=== PATIENT | female | born 1980 | race Caucasian/White ===

== ENCOUNTER → 2024-07-04 14:30 | Outpatient (BNVA) | payer MEDICARE, MEDICAID, SELFPAY | PROVIDERS: Family Provider Nurse Practitioner; PCP Nurse Practitioner; Visit Provider Family Medicine | DX: Z13.6 Encounter for screening for cardiovascular disorders (principal); E55.9 Vitamin D deficiency, unspecified; G62.9 Polyneuropathy, unspecified; F41.1 Generalized anxiety disorder; F33.1 Major depressive disorder, recurrent, moderate | CPT/HCPCS: 80053; 80061; 82306; 84443; 85025 ==

== ENCOUNTER 2024-07-27 15:59 | Outpatient (CLI) | payer MEDICARE, MEDICAID, SELFPAY ==
--- NOTE | 2024-07-27 16:00 | MM_ITS ---
WS: [id number] BILATERAL 3D TOMOSYNTHESIS DIGITAL SCREENING MAMMOGRAPHY WITH CAD CLINICAL INFORMATION: Z12.31 - Encounter for screening mammogram for malignant ... HISTORY: Screening mammogram. No current complaints. COMPARISON: Baseline TECHNIQUE: Bilateral CC and MLO views. FINDINGS: Scattered fibroglandular densities bilaterally. No suspicious focal mass, asymmetry, calcifications, or architectural distortion. No evidence of malignancy. MM/MM scr tomosynthesis [id number] IMPRESSION: DENSITY: There are scattered areas of fibroglandular density. BI-RADS: 1 - Negative. FOLLOW UP: 1 Year Follow-up Recommend return to annual screening mammography.
== END 2024-07-27 16:00 | disposition home or self-care (01) ==
LOC: MOBLMAM 16:28
PROVIDERS: PCP Family Medicine; Visit Provider Family Medicine
DX: Z12.31 Encounter for screening mammogram for malignant neoplasm of breast (principal); R92.323 Mammographic fibroglandular density, bilateral breasts
CPT/HCPCS: 77063; 77067

== ENCOUNTER → 2024-08-10 11:00 | Outpatient (BNVA) | payer MEDICARE, MEDICAID, SELFPAY | PROVIDERS: PCP Family Medicine; Referring Provider Family Medicine; Visit Provider Specialist | DX: G89.29 Other chronic pain; G56.03 Carpal tunnel syndrome, bilateral upper limbs; G43.711 Chronic migraine without aura, intractable, with status migrainosus; M54.50 Low back pain, unspecified; M41.9 Scoliosis, unspecified | CPT/HCPCS: 99204 ==

== ENCOUNTER 2024-09-19 11:00 | Outpatient (CLI) | payer MEDICARE, MEDICAID, SELFPAY ==
--- NOTE | 2024-09-19 11:00 | MR_ITS ---
WS: [id number] MRI LUMBAR SPINE NONCONTRAST TECHNIQUE: Sagittal T1, T2 and STIR imaging. Axial T1 and T2 imaging. CLINICAL INFORMATION: M54.9 - Dorsalgia, unspecified COMPARISON: MRI 2016 FINDINGS: Mild lumbar curve. No acute compression. Slight anterolisthesis L3 on L4. Disc bulging worse at L1-2 L2-3 and L3-4 progressed since 2016. Central disc protrusions in the cervical spine at C5-C6 and C6-C7. Mild central canal stenosis. L1-L2: Central and RIGHT paracentral disc extrusion with caudal migration of disc material in the RIG HT subarticular recess. Moderate central canal stenosis with impingement subarticular recess bilatera lly. Mild bilateral foraminal narrowing. Disc herniation is new compared to previous. Moderate facet arthropathy. L2-L3: Mild disc bulge with mild central canal stenosis. Impingement RIGHT subarticular recess. Moder ate facet arthropathy. Foramen are patent. L3-L4: RIGHT subarticular disc protrusion. Impingement RIGHT subarticular recess. Mild RIGHT foramina l narrowing. Moderate facet arthropathy. Mild central canal stenosis. L4-L5: Mild annular bulging. Mild facet arthropathy. Mild RIGHT greater than LEFT foraminal narrowing . L5-S1: Mild annular bulging. Moderate facet arthropathy. Spinal canal and foramen are patent. Visualized pelvic bony structures: Normal. Paravertebral soft tissues: Normal. MR/MR lumbar spine wo con* [id number] IMPRESSION: 1. Lumbar scoliosis. No acute compression. 2. New RIGHT central and RIGHT paracentral disc extrusion L1-2 with slight inf erior migration of disc material. Moderate central canal stenosis with impingem ent on the RIGHT greater than LEFT subarticular recess. This is new from previo us. 3. Mild central canal stenosis L2-3 and L3-4 with narrowing of the RIGHT subar ticular recess at these levels also appears progressed. 4. Otherwise mild foraminal narrowing described above.
== END 2024-09-19 11:17 | disposition home or self-care (01) ==
PROVIDERS: PCP Family Medicine; Visit Provider Specialist
DX: M51.26 Other intervertebral disc displacement, lumbar region (principal); M48.061 Spinal stenosis, lumbar region without neurogenic claudication; M47.896 Other spondylosis, lumbar region; M54.16 Radiculopathy, lumbar region; M47.898 Other spondylosis, sacral and sacrococcygeal region
CPT/HCPCS: 72148

== ENCOUNTER 2024-09-28 06:00 | Outpatient (RCR) | payer MEDICARE, MEDICAID, SELFPAY | END 2024-10-08 23:59 | disposition home or self-care (01) | LOC: GPT 06:00 | PROVIDERS: PCP Family Medicine; Visit Provider Specialist | DX: M41.25 Other idiopathic scoliosis, thoracolumbar region (principal) | CPT/HCPCS: 97110; 97112; 97162 ==

== ENCOUNTER → 2024-10-04 13:47 | Outpatient (BNVA) | payer MEDICARE, MEDICAID, SELFPAY | PROVIDERS: PCP Family Medicine; Referring Provider Specialist; Visit Provider Specialist | DX: G62.9 Polyneuropathy, unspecified (principal); G56.03 Carpal tunnel syndrome, bilateral upper limbs | CPT/HCPCS: 95910; 99214 ==

== ENCOUNTER 2024-10-09 06:00 | Outpatient (RCR) | payer MEDICARE, MEDICAID, SELFPAY | END 2024-11-08 23:59 | disposition home or self-care (01) | LOC: GPT 06:00 | PROVIDERS: PCP Family Medicine; Visit Provider Specialist | DX: M41.25 Other idiopathic scoliosis, thoracolumbar region (principal) | CPT/HCPCS: 97110; 97112; 97140; 97530 ==

== ENCOUNTER → 2024-11-16 10:30 | Outpatient (BNVA) | payer MEDICARE, MEDICAID, SELFPAY | PROVIDERS: PCP Family Medicine; Visit Provider Family Medicine | DX: E87.6 Hypokalemia (principal) | CPT/HCPCS: 80048 ==

== ENCOUNTER → 2024-11-24 11:15 | Outpatient (BNVA) | payer MEDICARE, MEDICAID, SELFPAY | PROVIDERS: PCP Family Medicine; Visit Provider Student in an Organized Health Care Education/Training Program | DX: G56.03 Carpal tunnel syndrome, bilateral upper limbs (principal) | CPT/HCPCS: 73110; 99204 ==

== ENCOUNTER → 2024-12-08 15:26 | Outpatient (BNVA) | payer MEDICARE, MEDICAID, SELFPAY | PROVIDERS: PCP Family Medicine; Visit Provider Orthopaedic Surgery | DX: M54.42 Lumbago with sciatica, left side (principal); M54.41 Lumbago with sciatica, right side; G89.29 Other chronic pain | CPT/HCPCS: 72110; 80053; 81001; 85025; 99204 ==

== ENCOUNTER 2024-12-16 06:41 | Day surgery (SDC) | payer MEDICARE, MEDICAID, SELFPAY ==
[2024-12-16] VITALS (9 sets, daily range): BP systolic 92–133; BP diastolic 56–80; PULSE 79–87; RESP 14–18; TEMP 36.1–36.6; O2SAT 92–98; BMI 51.9
[2024-12-16] MEDS: acetaminophen 1,000 MG/100 ML PIGGYBACK 400 MG IV (07:24)
[2024-12-16] MEDS: sodium chloride 0.9% 1,000 ML 30 ML IV (07:24)
[2024-12-16] MEDS: ketorolac 30 mg/mL INJ IVP (07:27)
[2024-12-16 07:39] LABS: OR HCG Qualitative Urine Negative (Negative)
--- NOTE | 2024-12-16 07:40 | ANES.PREANE2 ---
Pre-Anesthetic Assessment Height/Weight: Height 4 ft 11 in Weight 257 lb Temp Pulse Resp BP Pulse Ox O2 Del Method 97.2 F L 84 18 133/80 98 Room Air 12/16/24 07:09 12/16/24 07:09 12/16/24 07:09 12/16/24 07:09 12/16/24 07:09 12/16/24 07:09 Preop Diagnosis: Carpal tunnel syndrome Operation Date: 12/16/24 08:10 Proposed Procedures p Carpal Tunnel Release(Right) - Kenan Shearer, DO Was Beta Shiv taken within 24 hours: Yes Was Clonidine taken within 24 hours: N/A Last intake: Intake Last Liquid Date 12/15/24 Last Liquid Time 23:45 Last Solid Date 12/15/24 Last Solid Time 23:45 Social Tobacco and No alcohol Exam alert, oriented x 3, clear to auscultation bilaterally and regular rate & rhythm Airway Submandibular: within normal limits Cervical ROM: within normal limits Mallampati: Class II Comments: Comments: Edentulous Anesthetic Plan ASA status: 3 Anesthesia: Choice Other: Patient reports waking up during endoscopy as well as being awake too early from surgery last time States that local anesthetics do not work on her NPO since yesterday Patient on propranolol for anxiety History of PTSD BMI 51 Labs 12/08/2024 reviewed acceptable for procedure We will still have surgery to localize Medications/Allergies Home Medications ?Medication ?Instructions ?Recorded ?Confirmed ?Last Taken ?Type duloxetine 60 mg capsule,delayed 60 mg PO DAILY #30 caps 07/25/24 12/15/24 12/15/24 Rx release propranolol 20 mg tablet 20 mg PO BID PRN anxiety #60 tabs 07/25/24 12/16/24 2 Months Ago Rx ~10/15/24 gabapentin 600 mg tablet 900 mg (1.5 x 600 mg) PO TID #135 07/27/24 12/15/24 12/16/24 06:00 Rx tabs meloxicam 15 mg tablet 15 mg PO DAILY #30 tabs 07/27/24 12/16/24 1 Week Ago Rx ~12/09/24 buspirone 10 mg tablet 10 mg PO TID #90 tabs 10/03/24 12/15/24 12/15/24 Rx albuterol sulfate 90 mcg/actuation 1 inh inhalation QID PRN shortness 11/11/24 12/16/24 2 Months Ago Rx aerosol inhaler of breath or wheezing #8.5 grams ~10/15/24 tramadol 50 mg tablet 100 mg (2 x 50 mg) PO TID PRN pain 11/11/24 12/15/24 12/16/24 06:00 Rx #180 tabs cyclobenzaprine 10 mg tablet 10 mg PO TID muscle spasm 12/15/24 12/15/24 12/16/24 06:00 History Allergies Allergy/AdvReac Type Severity Reaction Status Date / Time amoxicillin Allergy Mild ALGY-Difficulty Verified 12/15/24 13:12 Breathing Bleach (Sodium Hypochlorite) AdvReac Mild ADR-Blurry Verified 12/15/24 13:12 Vision coconut AdvReac Mild ADR-Nausea Verified 12/15/24 13:12 erythromycin base AdvReac Mild ADR-Cramping Verified 12/15/24 13:12 of the Muscles Current Medications Generic Name Dose Route Start Last Admin Trade Name Freq PRN Reason Stop Dose Admin Sodium Chloride 1,000 mls @ 30 mls/hr 12/16/24 07:00 12/16/24 07:24 Sodium Chloride 0.9% IV 12/17/24 06:59 30 mls/hr .Q24H LES Administration PFSH Anesthesia Medical History Psychiatric care Family History Mother Ovarian cancer Social History Smoking and tobacco/nicotine status: current every day tobacco/nicotine user cigarettes Packs smoked per day: 1.5 Second hand smoke exposure: No Alcohol intake: current Alcohol intake frequency: holidays/special occasions only Substance/Drug Use: former Adopted: No Caregiver/support person: No Lives independently: Yes Current occupational status: disabled Current occupational exposures/hazards: No Female Reproductive History Spontaneous abortions: No Data Anesthesia Cardiac Studies: No Data to Display
--- NOTE | 2024-12-16 07:54 | W.PM.OPSUD ---
Surgery/Procedure H&P Update DATE OF PROCEDURE: December 16, 2024 DATE H&P PERFORMED: 12/16/24 H&P UPDATE INFORMATION: I have reviewed H&P completed within last 30 days, I have examined patient prior to procedure and No changes to prior documentation PREOP DIAGNOSIS: Right carpal tunnel syndrome PRIMARY INDICATION FOR PROCEDURE: Right carpal tunnel syndrome PLANNED PROCEDURE: Operation Date: 12/16/24 08:10 Proposed Procedures p Carpal Tunnel Release(Right) - Kenan Shearer DO
[2024-12-16] MEDS: clindamycin 900 MG/50 ML PREMIX 100 MG IV (08:10)
[2024-12-16] MEDS: lidocaine-epi 1% PF 1:200,000 30 mL SDV 5 ML INJECTION (08:15)
[2024-12-16] MEDS: ROPivacaine 0.5% SDV 30 mL 25 MG INJECTION (08:15)
--- NOTE | 2024-12-16 08:52 | SUR.PHASEI ---
09:45 RECEIVED PT FROM OR STAFF. ALERT AND RESPONSIVE. AIRWAY PATENT, WITH GOOD VENTILATION. ROM AND CAP REFILL RIGHT HAND.
--- NOTE | 2024-12-16 08:53 | P.BOP_ITS ---
Date of Procedure: 12/16/2024 Surgeon: Kenan Shearer DO Gas Plant Operator(s): None Procedure(s) performed: Right carpal tunnel release Findings of the procedure(s): Patient found to have right carpal tunnel syndrome underwent procedure as planned without issues or complications Estimated blood loss: 5 mL Specimen(s) removed: None Post-operative diagnosis: Right carpal tunnel syndrome
--- NOTE | 2024-12-16 08:53 | PM.OP ---
Operative Report Date of procedure: December 16, 2024 Surgeon: Kenan Shearer DO Procedure: Preop Diagnosis: Right Carpal Tunnel Syndrome Post-op diagnosis: Same Procedure done: 1. Right carpal tunnel release Surgeon: Kenan Shearer DO Anesthesia: MAC (Local) Estimated blood loss: [ 5]mL Tourniquet time [ 6]minutes IV fluids: See anesthesia record Complications: None Findings: See operative report narrative Condition: stable Disposition: same day Brief History: Patient is a pleasant [ 44 ]year-old [ F] with right carpal tunnel syndrome. Patient has been worked up in the outpatient setting findings and physical examination consistent with this. Patient nerve conduction studies consistent with carpal tunnel syndrome. We detailed out patient's risk benefits complication alternatives with surgical and nonsurgical treatment options. Through shared decision making, patient agrees to proceed with surgical intervention of the right carpal tunnel release . Patient understands and agrees with current plan. All questions answered. Patient elects to proceed with surgical intervention with carpal tunnel release. Procedure: Patient seen and evaluated in the preoperative holding area. Consent was reviewed and signed with patient. Correct extremity was marked. Patient was seen evaluated by the anesthesia department once cleared for surgery was brought back to the operative suite. Patient was kept on [facility] in supine position all bony prominences were well-padded patient properly secured to the bed. Right upper extremity was then placed onto an armboard. A nonsterile tourniquet was applied to the Right upper arm. Patient underwent anesthesia per the anesthesia department. Patient's Right upper extremity was then prepped and draped in standard orthopedic fashion. Final timeout performed. Patient received appropriate preoperative antibiotics. Under sterile aseptic technique patient received local anesthesia over the preplanned carpal tunnel incision site. Esmarch was used to exsanguinate the Right upper extremity and tourniquet was insufflated to 250 mmHg. A standard mini open Right carpal tunnel incision was made. Starting distally at Aceves's cardinal line in line with the fourth ray extending proximally distal to the wrist crease centered over the carpal tunnel. Sharp scalpel incision was made through skin and subcutaneous tissue. Self-retaining retractor was placed and the palmar fascia was identified. This was then split longitudinally and direct visualization of the transverse carpal ligament was then made. I then utilizing scalpel feathered through the transverse carpal ligament until I entered the floor of the transverse carpal tunnel ligament into the carpal tunnel. Next I switched to dissection scissors and completed my release of the transverse carpal ligament distally with care to protect the recurrent motor branch. I completely released into the palmar fat and until no entrapment was noted distally. Care was made to protect the superficial palmar arch during my distal dissection. Next I utilized a nasal speculum placed on top of the transverse carpal ligament and utilize this to retract the subcutaneous fat and tissue and under direct loupe magnification was able to identify the transverse carpal ligament. Next I then protected the contents of the carpal tunnel and subsequently utilizing dissection scissors under loupe magnification completely released the transverse carpal ligament proximally into the antebrachial fascia. Care was made to protect the palmar cutaneous branch by keeping my scissors curved ulnarly. Once completely released, I then placed my [place] and had appropriate decompression of the carpal tunnel proximally as well as distally. I then inspected the contents of the carpal tunnel which showed an hourglass shape of the median nerve showing its compression. No masses were noted. Tendons appeared healthy. Wound was then thoroughly irrigated. Tourniquet deflated. Hemostasis satisfactory with bipolar electrocautery. I then closed the incision with interrupted nylon stitches. Xeroform 4 x 4's and a bulky soft dressing was applied. Patient was then awakened from anesthesia and taken to PACU in stable condition. Patient tolerated procedure without complications. Disposition: Patient taken to PACU in stable condition recovering well. Dressing clean dry and intact. Patient will receive appropriate discharge instructions as well as pain medication postoperatively. Patient to follow-up with me in the office in 2 weeks. They understand they may be weightbearing as tolerated to the right hand. Patient should keep incision clean dry and intact. Patient understands if any questions or concerns may contact the office.
[2024-12-16] MEDS: HYDROcodone-acetaminophen 5-325 mg Tablet 1 TAB PO (09:56)
--- NOTE | 2024-12-16 10:21 | ANE.PACU2 ---
Inpatient post-anesthesia follow up: Airway intact: Yes Vital signs: Temperature 98 F Pulse Rate 79 Respiratory Rate 16 Blood Pressure 112/74 Pulse Oximetry 96 Oxygen Delivery Me thod Room Air Oxygen Flow Rate Fraction of Inspir ed Oxygen Hydration adequate: Yes Nausea and vomiting: No Pain level: 1
== END 2024-12-16 10:22 | disposition home or self-care (01) ==
PROVIDERS: Student in an Organized Health Care Education/Training Program; PCP Family Medicine; Visit Provider Student in an Organized Health Care Education/Training Program
PROC: (CPT 64721; principal; 2024-12-16 08:00)
DX: G56.03 Carpal tunnel syndrome, bilateral upper limbs (principal); Z79.899 Other long term (current) drug therapy; Z88.0 Allergy status to penicillin; Z91.018 Allergy to other foods; Z91.048 Other nonmedicinal substance allergy status; F17.210 Nicotine dependence, cigarettes, uncomplicated
CPT/HCPCS: 64721; 81025; J0131; J1885; J2250; J2704; J2795; J3010; J3490; J7030

== ENCOUNTER → 2025-01-03 13:41 | Outpatient (BNVA) | payer MEDICARE, MEDICAID, SELFPAY | PROVIDERS: PCP Family Medicine; Visit Provider Physician Assistant | DX: Z98.890 Other specified postprocedural states (principal) | CPT/HCPCS: 99024 ==

== ENCOUNTER → 2025-03-07 14:46 | Outpatient (BNVA) | payer MEDICARE, MEDICAID, SELFPAY | PROVIDERS: PCP Family Medicine; Visit Provider Orthopaedic Surgery | DX: M51.362 Other intervertebral disc degeneration, lumbar region with discogenic back pain and lower extremity pain (principal); M54.50 Low back pain, unspecified; M54.9 Dorsalgia, unspecified | CPT/HCPCS: 99213 ==

== ENCOUNTER 2025-03-29 15:22 | Outpatient (CLI) | payer MEDICARE, MEDICAID, SELFPAY ==
--- NOTE | 2025-03-29 15:15 | MR_ITS ---
WS: [id number] MRI LUMBAR SPINE NONCONTRAST HISTORY: Back Pain COMPARISON: 09/19/2024 TECHNIQUE: Sagittal and axial multisequence imaging is submitted. Straightening of the cervical lordosis. Cervical disc protrusions at C5-6 and C6-7. Discs are encroaching upon the cervical cord. Similar to the prior study. Moderate rotary scoliosis to the LEFT. Scoliosis does appear to have slightly increased. The spaces are narrowed and desiccated. Vertebral body osteophytosis. Marrow edema in L1 and L2 is new. Chronic changes in L3 and L4 with no acute marrow edema. Conus terminates normally at L1-2 disc level. L1-L2: Moderate size central disc protrusion extends into the subarticular recesses and contacts the traversing L2 nerve roots. Mild to moderate bilateral foraminal stenosis. Disc and osteophyte material causing foraminal stenosis. Moderate central to stenosis as on the prior study. L2-L3: Moderate diffuse disc bulging with moderate to severe facet joint arthritis. RIGHT subarticular recess impingement. RIGHT foraminal disc protrusion. RIGHT foraminal disc protrusion with mild contact on the exiting nerve root. Mild central stenosis with moderate RIGHT subarticular recess and RIGHT foraminal stenosis. L3-L4: Diffuse annular disc bulging asymmetric to the LEFT. Small disc osteophyte complexes, marked ligamentum flavum and facet arthritis. Mild central, subarticular recess and foraminal stenosis. Slightly greater impingement upon the RIGHT traversing L4 nerve root. L4-L5: Diffuse annular disc bulging with fluid in the facet joints and marked ligamentum flavum hypertrophy. Bilateral foraminal small disc osteophyte complexes with mild stenosis. L5-S1: No stenosis. Mild disc bulging and facet arthritis. MR/MR lumbar spine wo con* [id number] IMPRESSION: 1. Mild progression of LEFT rotoscoliosis since the prior study. 2. New endplate marrow edema at L1 and L2. No fractures. Schmorl's nodes suspe cted at L1 and L2. 3. New fluid in the L4-5 facet joints with mild progression of facet arthritis . Mild bilateral foraminal stenosis due to disc osteophyte disease. 4. L1-2: Moderate central disc protrusion extending into the subarticular rece sses. Moderate central stenosis with mild to moderate bilateral foraminal steno sis. No progression since the prior study. 5. L2-3: Moderate to severe facet joint arthritis with RIGHT subarticular impi ngement and a RIGHT foraminal disc protrusion. Moderate RIGHT subarticular rece ss and RIGHT foraminal stenosis. No obvious change since the prior study. 6. L3-4: Mild central and subarticular recess stenosis, multifactorial as abov e.
== END 2025-03-29 15:23 | disposition home or self-care (01) ==
LOC: RAD 15:23
PROVIDERS: PCP Family Medicine; Visit Provider Orthopaedic Surgery
DX: M48.061 Spinal stenosis, lumbar region without neurogenic claudication (principal); M41.86 Other forms of scoliosis, lumbar region; M51.46 Schmorl's nodes, lumbar region; M47.896 Other spondylosis, lumbar region; M25.78 Osteophyte, vertebrae; M51.26 Other intervertebral disc displacement, lumbar region; M50.222 Other cervical disc displacement at C5-C6 level; M50.223 Other cervical disc displacement at C6-C7 level; M51.369 Other intervertebral disc degeneration, lumbar region without mention of lumbar back pain or lower extremity pain; M24.28 Disorder of ligament, vertebrae; M51.379 Other intervertebral disc degeneration, lumbosacral region without mention of lumbar back pain or lower extremity pain; M47.897 Other spondylosis, lumbosacral region
CPT/HCPCS: 72148

== ENCOUNTER → 2025-04-04 15:35 | Outpatient (BNVA) | payer MEDICARE, MEDICAID, SELFPAY | PROVIDERS: PCP Family Medicine; Visit Provider Orthopaedic Surgery | DX: M54.9 Dorsalgia, unspecified (principal); Z09 Encounter for follow-up examination after completed treatment for conditions other than malignant neoplasm | CPT/HCPCS: 36415; 80053; 81001; 85025; 99214 ==

== ENCOUNTER → 2025-05-02 16:02 | Outpatient (BNVA) | payer MEDICARE, MEDICAID, SELFPAY | PROVIDERS: PCP Family Medicine; Visit Provider Orthopaedic Surgery | DX: M54.42 Lumbago with sciatica, left side (principal); M54.41 Lumbago with sciatica, right side; G89.29 Other chronic pain | CPT/HCPCS: 99213 ==

== ENCOUNTER 2025-05-05 08:21 | Day surgery (SDC) | payer MEDICARE, MEDICAID, SELFPAY ==
[2025-05-05] VITALS (15 sets, daily range): BP systolic 110–144; BP diastolic 61–95; PULSE 72–92; RESP 15–23; TEMP 36.7–37.1; O2SAT 90–99; BMI 49.4
[2025-05-05 08:51] LABS: OR HCG Qualitative Urine Negative (Negative)
[2025-05-05] MEDS: sodium chloride 0.9% 1,000 ML 30 ML IV (09:06)
--- NOTE | 2025-05-05 09:13 | P.ANESASSM_ITS ---
Pre-Anesthetic Assessment Height/Weight: Height 4 ft 11 in Weight 245 lb Temp Pulse Resp BP Pulse Ox O2 Del Method 98.7 F 88 17 122/74 98 Room Air 05/05/25 08:40 05/05/25 08:40 05/05/25 08:40 05/05/25 08:40 05/05/25 08:40 05/05/25 08:40 Preop Diagnosis: Lumbar stenosis with neurogenic claudication Operation Date: 05/05/25 09:40 Proposed Procedures p Lumbar Spine Decompression(Not Applicable) - Zain Urrutia, DO Was Beta Shiv taken within 24 hours: N/A Was Clonidine taken within 24 hours: N/A Last intake: Intake Last Liquid Date 05/04/25 Last Liquid Time 23:00 Last Solid Date 05/04/25 Last Solid Time 23:00 Social Tobacco and No alcohol Exam alert, oriented x 3 and regular rate & rhythm Airway Submandibular: within normal limits Cervical ROM: within normal limits Mallampati: Class III Dentition: full Anesthetic Plan ASA status: 3 Anesthesia: General Other: No prior issues with anesthesia NPO since yesterday evening Denies any cardiac Current smoker, nicotine and marijuana History of PTSD and depression Labs from 04/04/2025 reviewed acceptable for procedure BMI 49 hCG negative today Plan for GETA Medications/Allergies Home Medications ?Medication ?Instructions ?Recorded ?Confirmed ?Last Taken ?Type albuterol sulfate 90 mcg/actuation 1 inh inhalation QI D PRN shortness 11/11/24 05/05/25 2 Months Ago Rx aerosol inhaler of breath or wheezing #8.5 g alison ~10/15/24 duloxetine 60 mg capsule,delayed 60 mg PO DAILY #90 ca ps 05/04/25 05/05/25 05/04/25 Rx release gabapentin 600 mg tablet See Rx Instructions .Route 0 05/04/25 05/05/25 05/05/25 Rx .COMPLEX #135 tabs tramadol 50 mg tablet 100 mg (2 x 50 mg) PO TID MI N pain 05/04/25 05/05/25 05/05/25 Rx #180 tabs buspirone 10 mg tablet 10 mg PO DAILY 05/05/25 06/2 06/0205/04/25 History cyclobenzaprine 10 mg tablet 10 mg PO TID PRN Muscle S pasm 05/05/25 05/05/25 05/05/25 History meloxicam 15 mg tablet 15 mg PO DAILY 05/05/25 06/06/0204/27/25 History Allergies Allergy/AdvReac Type Severity Reaction Status Date / Time amoxicillin Allergy Mild ALGY-Difficulty Verified 05/05/25 08:36 Breathing Bleach (Sodium Hypochlorite) AdvReac Mild ADR-Blurry Verified 05/05/25 08:36 Vision coconut AdvReac Mild ADR-Nausea Verified 05/05/25 08:36 erythromycin base AdvReac Mild ADR-Cramping Verified 05/05/25 08:36 of the Muscles Current Medications Generic Name Dose Route Start Last Admin Trade Name Freq PRN Reason Stop Dose Admin Sodium Chloride 1,000 mls @ 30 mls/hr 05/05/25 08:30 05/05/25 09:06 Sodium Chloride 0.9% IV 05/06/25 08:29 30 mls/hr .Q24H LES Administration PFSH Anesthesia Medical History Psychiatric care Family History Mother Ovarian cancer Social History Smoking and tobacco/nicotine status: current every day tobacco/nicotine user cigarettes Packs smoked per day: 1.5 Second hand smoke exposure: No Alcohol intake: current Alcohol intake frequency: holidays/special occasions only Substance/Drug Use: former Adopted: No Caregiver/support person: No Lives independently: Yes Current occupational status: disabled Current occupational exposures/hazards: No Female Reproductive History Spontaneous abortions: No
--- NOTE | 2025-05-05 09:48 | W.PM.OPSUD ---
Surgery/Procedure H&P Update DATE OF PROCEDURE: May 05, 2025 DATE H&P PERFORMED: 05/02/25 H&P UPDATE INFORMATION: I have reviewed H&P completed within last 30 days, I have examined patient prior to procedure and No changes to prior documentation PREOP DIAGNOSIS: Lumbar stenosis with neurogenic claudication PLANNED PROCEDURE: Operation Date: 05/05/25 09:40 Proposed Procedures p Lumbar Spine Decompression(Not Applicable) - Zain Urrutia DO
[2025-05-05] MEDS: clindamycin 600 MG/50 ML PREMIX 100 MG IV (10:02)
[2025-05-05] MEDS: lidocaine-epi 1% 20 mL INJ INJECTION (10:59)
--- NOTE | 2025-05-05 11:27 | XR_ITS ---
WS: [id number] Exam: XR lumbar spine 2-3V* [id number] Date/Time of Exam: 05/05/2025 11:27 AM Reason For Exam: OR PICS Single limited AP image of the lumbar spine is submitted for evaluation. The image was obtained for preoperative localization purposes.
[2025-05-05] MEDS: ipratropium-albuterol 3 mL Neb INHALATION (14:11)
--- NOTE | 2025-05-05 14:38 | PC.NURSE ---
Pt was able to stay alert and sit up on side of bed and talk with RN. Oxygen saturation maintained above 94% on room air. Cleared for discharge per anesthesiologist.
--- NOTE | 2025-05-05 17:30 | PM.OP ---
Operative Report Date of procedure: May 05, 2025 Pre-op diagnosis: Lumbar stenosis with neurogenic claudication Post-op diagnosis: same Procedure done: 1. L3-4 laminectomy with partial facetectomy 2. L4-5 laminectomy with partial facetectomy Surgeon: Zain Urrutia DO Estimated blood loss (mL): 5 Procedure: 1. L3-4 laminectomy with partial facetectomy 2. L4-5 laminectomy with partial facetectomy Patient is brought to the operative suite. After undergoing anesthesia they are placed in the prone position. All areas of impingement are well padded. Patient is then prepped and draped in the normal sterile fashion. A skin incision is made over the L3/4 level. This is confirmed under c-arm guidance. A series of dilators are passed and the tubular retractor is docked on the L3 lamina. A bovie is used to clear the soft tissue off the lamina and the L 3/4 facet joint. A high speed michelle is then used to perform the laminectomy and take down the medial aspect of the L 3/4 facet joint. A kerrison rongeure was then used to take down the remaining lamina and smooth the edge of the laminectomy up to the point where the ligamentum flavum attaches. Attention was then brought to the medial aspect of the facet joint. The remaining medial aspect of the superior and inferior aspect of the facet joint were taken down with the kerrison from the pedicle of L3 to L 4. The facet joint had significant hypertrophy. Attention was then brought to the Ligamentum Flavum. The ligament was taken down from the lamina of L3 to L4 and out medially to the remaining facet joint. The ligament was thick. The dura was then exposed. The dura was in good repair. The L3 nerve was then traced with a curette out the L3/4 foramen and found to be adequately decompressed. The L4 nerve was traced with a curette around the L4 pedicle. The lateral recess was opened with a kerrison helping to further decompress the L4 nerve. Wound is then irrigated copiously with saline and surgiflo is used to stop any bleeding. The tubular retractor is removed A skin incision is made over the L4/5 level. This is confirmed under c-arm guidance. A series of dilators are passed and the tubular retractor is docked on the L4 lamina. A bovie is used to clear the soft tissue off the lamina and the L 4/5 facet joint. A high speed michelle is then used to perform the laminectomy and take down the medial aspect of the L 4/5 facet joint. A kerrison rongeure was then used to take down the remaining lamina and smooth the edge of the laminectomy up to the point where the ligamentum flavum attaches. Attention was then brought to the medial aspect of the facet joint. The remaining medial aspect of the superior and inferior aspect of the facet joint were taken down with the kerrison from the pedicle of L4 to L 5. The facet joint had significant hypertrophy. Attention was then brought to the Ligamentum Flavum. The ligament was taken down from the lamina of L4 to L5 and out medially to the remaining facet joint. The ligament was thick. The dura was then exposed. The dura was in good repair. The L4 nerve was then traced with a curette out the L4/5 foramen and found to be adequately decompressed. The L5 nerve was traced with a curette around the L5 pedicle. The lateral recess was opened with a kerrison helping to further decompress the L5 nerve. Wound is then irrigated copiously with saline and surgiflo is used to stop any bleeding. The tubular retractor is removed and the wound is closed with vicryl and monocryl suture. Glue is then used to protect the wound. A sterile dressing is then placed. Patient was then placed in the supine position and transferred to the PACU in stable condition.
== END 2025-05-05 14:38 | disposition home or self-care (01) ==
PROVIDERS: Student in an Organized Health Care Education/Training Program; PCP Family Medicine; Visit Provider Orthopaedic Surgery
PROC: (CPT 63005; principal; 2025-05-05 09:30)
DX: M48.062 Spinal stenosis, lumbar region with neurogenic claudication (principal); F17.210 Nicotine dependence, cigarettes, uncomplicated; F12.90 Cannabis use, unspecified, uncomplicated; F43.10 Post-traumatic stress disorder, unspecified; F32.A Depression, unspecified
CPT/HCPCS: 63047; 63048; 72100; 76000; 81025; 94640; J0131; J1100; J1885; J2250; J2405; J2704; J3010; J3475; J3490; J7030; J9999

== ENCOUNTER → 2025-05-09 15:29 | Outpatient (BNVA) | payer MEDICARE, MEDICAID, SELFPAY | PROVIDERS: PCP Family Medicine; Visit Provider Orthopaedic Surgery | DX: Z98.890 Other specified postprocedural states (principal) | CPT/HCPCS: 99024 ==

== ENCOUNTER → 2025-05-18 13:44 | Outpatient (BNVA) | payer MEDICARE, SELFPAY | PROVIDERS: PCP Family Medicine; Visit Provider Orthopaedic Surgery | DX: Z98.890 Other specified postprocedural states (principal) | CPT/HCPCS: 99024 ==

== ENCOUNTER → 2025-06-15 14:20 | Outpatient (BNVA) | payer MEDICARE, SELFPAY | PROVIDERS: PCP Family Medicine; Visit Provider Orthopaedic Surgery | DX: Z98.890 Other specified postprocedural states (principal) | CPT/HCPCS: 99024 ==

== ENCOUNTER → 2025-07-27 15:12 | Outpatient (BNVA) | payer MEDICARE, SELFPAY | PROVIDERS: PCP Family Medicine; Visit Provider Orthopaedic Surgery | DX: Z98.890 Other specified postprocedural states (principal); M25.551 Pain in right hip | CPT/HCPCS: 73502; 99024 ==